=== PATIENT | male | born 1955 | race Caucasian/White ===

== ENCOUNTER 2019-10-11 16:01 | Outpatient (CLI) | payer OTHER, SELFPAY ==
--- NOTE | 2019-10-11 16:16 | XR_ITS ---
WS: [id number] XR soft tissue neck [id number] REASON FOR EXAM: Recall VNS FINDINGS: DNS generator seen on the left upper chest. Electrodes terminate at the left side of the ce rvicothoracic junction. There is to be soft tissue swelling in the submandibular area. The airways are patent. Visualization of these DNS device this appears to be in the soft tissue rather in the vertebral alice s. XR/XR soft tissue neck 40954 IMPRESSION: The V and as stimulator is seen in the soft tissue external to the C5-6 level. There is soft tissue swelling in the submandibular area. The airways appear to be patent. In the AP projection the stimulator appeared to be in the bony structures to th e left of cervical vertebra C6-C7 .
--- NOTE | 2019-10-11 16:16 | XR_ITS ---
WS: [id number] XR chest 2V* [id number] REASON FOR EXAM: VNS generator recall FINDINGS: A VNS generator seen extends from the left side of the chest. This extends up to the lower cervicothoracic junction. There is granuloma well calcified in the right upper lung. The heart is not enlarged. There is no active processes in either lung field. XR/XR chest 2V* [id number] IMPRESSION: VNS generator on the left chest. Electrode is intact. Extends to the thoracolum bar junction. There is granulomas calcified in the right lung. No active processes are seen either lung field.
== END 2019-10-11 16:02 | disposition home or self-care (01) ==
LOC: RAD 16:10
PROVIDERS: Family Provider Family Medicine; PCP Family Medicine; Visit Provider Licensed Practical Nurse
DX: T85.9XXA Unspecified complication of internal prosthetic device, implant and graft, initial encounter (principal); Y83.8 Other surgical procedures as the cause of abnormal reaction of the patient, or of later complication, without mention of misadventure at the time of the procedure; Z96.89 Presence of other specified functional implants
CPT/HCPCS: 70360; 71046

== ENCOUNTER → 2019-10-24 10:04 | Outpatient (BNVA) | payer OTHER, SELFPAY | PROVIDERS: Family Provider Family Medicine; PCP Family Medicine; Visit Provider Specialist | DX: G40.909 Epilepsy, unspecified, not intractable, without status epilepticus (principal); R41.89 Other symptoms and signs involving cognitive functions and awareness | CPT/HCPCS: 95971; 99214 ==

== ENCOUNTER 2020-01-07 11:39 | Day surgery (SDC) | payer OTHER, SELFPAY ==
[2020-01-04 09:27] VITALS: BMI 30.3
[2020-01-04 15:05] VITALS: BP 155/99; PULSE 73; RESP 18; TEMP 36.3; O2SAT 98
[2020-01-07 11:57] VITALS: BP 146/85; PULSE 68; RESP 18; TEMP 36.3; O2SAT 96
[2020-01-07] MEDS: sodium chloride 0.9% 1,000 ML 30 ML IV (12:22)
--- NOTE | 2020-01-07 12:58 | P.ANESASSM_ITS ---
Pre-Anesthetic Assessment Pre-Anesthetic Assessment: Height/Weight: Height 1.85 m Weight 104.326 kg Temp Pulse Resp BP Pulse Ox 97.3 F L 68 18 146/85 96 01/07/20 11:57 01/07/20 11:57 01/07/20 11:57 01/07/20 11:57 01/07/20 11:57 Preop Diagnosis: Complication of device, intractable epilepsy, status post vagal nerve simulator implantation Proposed Procedure: Operation Date: 01/07/20 13:30 Proposed Procedures p Vagal Nerve Stimulator 29293 T85.9XXA(Not Applicable) - Kavon Estevez MD Familial anesthetic complications: None Was Beta Matias taken within 24 hours: N/A Last intake: Intake Last Liquid Date 01/07/20 Last Liquid Time 07:00 Last Solid Date 01/06/20 Last Solid Time 20:00 Social: Social History: No alcohol and No tobacco Exam: Pre-Anes Outpt Exam: alert, oriented x 3, clear to auscultation bilaterally and regular rate & rhythm Airway: Cervical ROM: WNL MP: 4 Dentition: Full Pulmonary: Pulmonary: Sleep apnea (CPAP) : : None reported Hepatic: Hepatic: None reported GI: GI: None reported Metabolic: Metabolic: Morbid obesity Musc/skel: Musc/skel: None reported Neuropsych: Neuropsych: Seizure (Last one years ago from head trauma) Anesthetic Plan: ASA status: 3 Anesthesia: MAC Risk of > 500 ml blood loss (7ml/kg in children): No Meds/Allergies Current Medications: Current Medications Generic Name Dose Route Start Last Admin Trade Name Freq PRN Reason Stop Dose Admin Sodium Chloride 1,000 mls @ 30 ml s/hr 01/07/20 12:00 01/07/20 12:22 Sodium Chloride 0.9% IV 01/08/20 11:59 30 mls/hr .Q24H DM Administration PFSH Anesthesia PFSH: Medical History Complication of device VNS device recalled Surgical History (Updated 11/14/19 @ 16:20 by Kavon Estevez MD) History of eye surgery left, pt was in 4th grade History of surgery on arm right arm Status post placement of VNS (vagus nerve stimulation) device (02/19/19) Dr. Jolene Estevez Replacement of subcutaneous programmable pulse generator with connection to vagal nerve stimulating electrode array. 10/17/2012 [facility]. VNS generator change. 10/25/2008 VNS replacement, smaller unit. 06/15/2004 [facility]. Placement of electrode on vagus nerve. Placement of generator for vagal nerve stimulation. Family History Mother Diabetes Social History Smoking and tobacco status: never smoked Alcohol intake: never Household members: none Marital status: service: No Current occupational status: disabled History of recent travel: No Data Anesthesia Cardiac Studies: No Data to Display
--- NOTE | 2020-01-07 13:13 | W.PM.OPSUD ---
Surgery/Procedure H&P Update DATE OF PROCEDURE: January 07, 2020 DATE H&P PERFORMED: 12/28/19 H&P UPDATE INFORMATION: I have reviewed H&P completed within last 30 days and H&P to be scanned into chart PREOP DIAGNOSIS: Complication of device, intractable epilepsy, status post vagal nerve simulator implantation PRIMARY INDICATION FOR PROCEDURE: Seizures PLANNED PROCEDURE: Operation Date: 01/07/20 13:30 Proposed Procedures Replacement of subcutaneous Vagal Nerve Stimulator pulse generator 24701 T85.9XXA(Not Applicable) - Kavon Estevez MD
--- NOTE | 2020-01-07 13:47 | P.OP_ITS ---
Brief Operative Note: Date of procedure: 01/07/20 Pre-op diagnosis: Complication of device. Post-op diagnosis: same Procedure Done: Replacement of subcutaneous programmable pulse generator, with connection to vagal nerve stimulation electrode array. Surgeon: Kavon Estevez Estimated blood loss (mL): 5 Complications: None. Post-op Plan: Home per Ambulatory Surgery protocol. Condition: stable Disposition: same day Coding Level of Care Code Acute Director Of Hospitality for Mary Bradley
[2020-01-07 14:49] VITALS: BP 149/84; PULSE 76; RESP 14; TEMP 36.3; O2SAT 97
[2020-01-07 14:55] VITALS: BP 170/89; PULSE 68; RESP 16; O2SAT 99
[2020-01-07 15:00] VITALS: BP 163/91; PULSE 65; RESP 18; TEMP 36.3; O2SAT 99
[2020-01-07 15:05] VITALS: BP 155/99; PULSE 73; RESP 18; TEMP 36.3; O2SAT 98
[2020-01-07 15:30] VITALS: BP 165/95; PULSE 71; RESP 18
--- NOTE | 2020-01-07 17:09 | PM.OP ---
Operative Report Date of procedure: January 07, 2020 Pre-op Diagnosis: Complication of device, intractable epilepsy, status post vagal nerve simulator implantation Post-op diagnosis: same Procedure Done: Replacement of subcutaneous programmable pulse generator with connection to vagal nerve stimulation electrode array. Implants: VNS Therapy model #1000 pulse generator. Specimens removed/disposition: VNS Therapy model #1000 pulse generator. Pathology: Pulse generator to supervisor of guidance and testing for evaluation. Surgeon: Kavon Estevez Anesthesia: General (LMA) Estimated blood loss (mL): 5 IV fluids (mL): 400 Complications: None Condition: stable Disposition: PACU Brief History: Patient had a vagal nerve stimulation pulse generator replaced in February 2019. The device was subsequently the subject of an urgent medical records supervisor correction reza due to an increased incidence of device malfunction. The patient's device is in the serial number range covered by the reza. He had issues with seizure control and device function that were described in detail by Dr. Ramirez, the patient's managing neurologist. She recommended device replacement. After review of the diagnostic and treatment options with the risks/potential benefits/rationale for each, the patient requested proceed with surgical replacement of the vagal nerve stimulation pulse generator. Procedure: After routine preoperative evaluation and informed consent were obtained, the patient was taken to the Operating Room and positioned supine on the operating table. As per Anesthesia recommendations, he was placed under general anesthesia via LMA. The prior skin incision (left anterolateral chest near the anterior axillary line) was marked with a skin marker. The surgical field was scrubbed with Betadine and prepped with DuraPrep. Sterile towels and drapes were applied, and [place]an surgical barrier was placed. The diagonal surgical scar was infiltrated with 1% Xylocaine with Epinephrine. A skin incision was made and carried down into the subcutaneous tissues. Careful blunt and sharp dissection allowed the subcutaneous capsule containing the pulse generator and lead tail to be opened. The pulse generator was delivered from the subcutaneous pocket. The pulse generator-lead connection was noted to be intact. The set screw was released, and the connector pin was delivered from the port on the pulse generator. The explanted device was a VNS Therapy Model #1000 pulse generator. A new VNS Therapy Model #1000 pulse generator was opened onto the operative field. The pin on the lead tail was advanced into the pulse generator. The set screw was tightened and device interrogation was performed. The lead impedance was acceptable, heart rate sensing was confirmed, and no bradycardia was demonstrated. The site was copiously irrigated with sterile saline and antibiotic irrigation. The pulse generator and lead were placed within the pocket in the desired orientation. The pulse generator was secured with a single Silk suture through the anchor loop in the device body. The implanted device was programmed to the settings obtained from the explanted device. The incision was closed in multiple layers with 2-0 Vicryl Plus simple interrupted closure of the deep dermis, followed by 3-0 Vicryl Plus running subcuticular closure of the skin. Steri-Strips were applied, and a sterile dressing was placed. The patient was transferred onto the Recovery Room cart and transported to the PACU for routine postoperative monitoring and management. The patient tolerated the procedure well. The explanted device was prepared for return to the supervisor of guidance and testing for evaluation. All sponge, needle and instrument counts were correct at the completion of the procedure.
== END 2020-01-07 15:56 | disposition home or self-care (01) ==
PROVIDERS: PCP Family Medicine; Visit Provider Specialist
PROC: (CPT 64569; principal; 2020-01-07 13:30)
DX: T85.9XXA Unspecified complication of internal prosthetic device, implant and graft, initial encounter (principal); G40.409 Other generalized epilepsy and epileptic syndromes, not intractable, without status epilepticus; G47.30 Sleep apnea, unspecified; E66.01 Morbid (severe) obesity due to excess calories; Z68.30 Body mass index [BMI] 30.0-30.9, adult
CPT/HCPCS: 64569; 12345; 96365; C1767; J0690; J2001; J2704; J3010; J3370; J3490; J7030; J7050

== ENCOUNTER → 2020-01-16 08:09 | Outpatient (BNVA) | payer OTHER, SELFPAY | PROVIDERS: PCP Family Medicine; Visit Provider Specialist | DX: G40.909 Epilepsy, unspecified, not intractable, without status epilepticus (principal); R41.89 Other symptoms and signs involving cognitive functions and awareness; Z96.82 Presence of neurostimulator | CPT/HCPCS: 99213 ==

== ENCOUNTER → 2020-08-13 13:25 | Outpatient (BNVA) | payer OTHER, SELFPAY | PROVIDERS: PCP Family Medicine; Visit Provider Specialist | DX: G40.909 Epilepsy, unspecified, not intractable, without status epilepticus (principal); R63.5 Abnormal weight gain; Z68.36 Body mass index [BMI] 36.0-36.9, adult; Z96.82 Presence of neurostimulator | CPT/HCPCS: 99213 ==

== ENCOUNTER → 2021-03-11 13:29 | Outpatient (BNVA) | payer OTHER, SELFPAY | PROVIDERS: PCP Family Medicine; Visit Provider Specialist | DX: G40.909 Epilepsy, unspecified, not intractable, without status epilepticus (principal); Z96.82 Presence of neurostimulator | CPT/HCPCS: 95971; 99214 ==

== ENCOUNTER → 2021-07-27 15:09 | Outpatient (BNVA) | payer OTHER, SELFPAY | PROVIDERS: PCP Family Medicine; Visit Provider Specialist | DX: G40.209 Localization-related (focal) (partial) symptomatic epilepsy and epileptic syndromes with complex partial seizures, not intractable, without status epilepticus (principal); G40.409 Other generalized epilepsy and epileptic syndromes, not intractable, without status epilepticus; R41.1 Anterograde amnesia; Z96.82 Presence of neurostimulator; Z87.820 Personal history of traumatic brain injury | CPT/HCPCS: 95970; 99214 ==